=== PATIENT | female | born 1960 | race Two or more races ===

== ENCOUNTER 2025-06-01 19:18 | Inpatient (IN) | payer MEDICARE, OTHER ==
[~2025-06-01] VITALS: Ht 162.6 cm; Wt 96.2 kg
[2025-06-01] MEDS ORDERED: VANCOMYCIN 1 GM in IV D5W 250 ML IV ONE (19:30)
[2025-06-01] MEDS: CEFEPIME 1 GM in IV D5W 50 ML IV ONE (19:41)
[2025-06-01 19:50] LABS: PLATELET COUNT (AUTO) 241 K/uL (150-450); RED BLOOD CELL COUNT(AUTO) 3.09 MIL/uL (4.0-5.2); RED CELL DISTRIBUTION WIDTH 23.5 % (11.5-15.0); WHITE BLOOD COUNT (AUTO) 5.0 K/uL (4.3-11.0)
[2025-06-01 19:56] LABS: APPEARANCE,URINE TURBID (CLEAR); BLOOD, URINE 3+ Ery/uL (NEGATIVE); LEUKOCYTE ESTERASE ,URINE 2+ (NEGATIVE); NITRITE, URINE POSITIVE (NEGATIVE); UGLUCOSE NEGATIVE (NEGATIVE)
[2025-06-01 20:00] LABS: CALCIUM, SERUM 9.0 mg/dL (8.5-10.1); CREATININE 1.1 mg/dL (0.6-1.3); SODIUM SERUM 140.0 mmol/L (136-145); UREA NITROGEN, BLOOD 20.0 mg/dL (7-18)
[2025-06-01 20:01] LABS: ADD URINE CULTURE YES
[2025-06-01 20:04] LABS: INR 1.11 (0.91-1.10)
[2025-06-01 20:05] LABS: ASPARTATE AMINOTRANSFERASE 14.0 U/L (15-37); CALCIUM OXALATE CRYSTALS,UR Few /HPF (None Seen); TOTAL PROTEIN, SERUM 6.6 g/dL (6.4-8.2)
[2025-06-01 20:08] LABS: LACTIC ACID 0.8 mmol/L (0.4-2.0)
[2025-06-01] MEDS: IPRATROPIUM NEB FS 0.5 MG/2.5 ML AMPUL.NEB NEB ONE (20:31)
[2025-06-01] MEDS: ALBUTEROL FS 2.5 MG/3 ML VIAL.NEB CONTNEB ONE (20:31)
[2025-06-01 20:33] LABS: ABG BASE EXCESS 0.4 mmol/L (-2.0-3.0); ABG OXYGEN SATURATION 97.1 % (94.0-98.0); ABG PCO2 88.4 mmHg (32.0-45.0); ABG PH 7.156 (7.350-7.450); ABG PO2 103.4 mmHg (83.0-108.0); ABG TOTAL HEMOGLOBIN 9.8 G/dL (12.0-16.0); FLOW, BLOOD GAS 10.00 L/min (0.00-30.00); SITE, ABG LEFT RADIAL
[2025-06-01] MEDS ORDERED: ALBUTEROL FS 2.5 MG/3 ML VIAL.NEB ONE (20:59)
[2025-06-01] MEDS ORDERED: IPRATROPIUM NEB FS 0.5 MG/2.5 ML AMPUL.NEB ONE (20:59)
[2025-06-01] MEDS ORDERED: INSU100V7 SQ (21:06)
[2025-06-01] MEDS ORDERED: INSU100V39 SQ (21:06)
[2025-06-01] MEDS ORDERED: TAMS-12 PO (21:06)
[2025-06-01] MEDS ORDERED: ATOR20TA PO (21:06)
[2025-06-01] MEDS ORDERED: HYDR-4076 PO (21:06)
[2025-06-01] MEDS ORDERED: LETR2.5T PO (21:06)
[2025-06-01] MEDS ORDERED: VANC250C12 IV (21:06)
[2025-06-01] MEDS ORDERED: ASCO500C18 PO (21:06)
[2025-06-01] MEDS ORDERED: ERGO500093 PO (21:06)
[2025-06-01] MEDS ORDERED: APIX5TAB4 PO (21:06)
[2025-06-01] MEDS ORDERED: MULT-594 PO (21:06)
[2025-06-01] MEDS ORDERED: OMEP20CA15 PO (21:06)
[2025-06-01] MEDS ORDERED: SENN8.6T19 PO (21:06)
[2025-06-01] MEDS ORDERED: GABA600T12 PO (21:06)
[2025-06-01] MEDS ORDERED: MIRT7.5T10 PO (21:06)
[2025-06-01] MEDS ORDERED: OXYC15TA82 PO (21:06)
[2025-06-01] MEDS ORDERED: NOREPINEPHRINE 8 MG in IV NS 0.9% 250 ML IV PRN (22:00)
[2025-06-01] MEDS ORDERED: ACETAMINOPHEN 650 MG/SUPP.RECT RC PRN (22:00)
[2025-06-01] MEDS ORDERED: ONDANSETRON HCL/PF 4 MG/2 ML VIAL IVP PRN (22:00)
[2025-06-01] MEDS ORDERED: DEXTROSE 50%-WATER 50 ML DISP.SYRIN IV PRN (22:00)
[2025-06-01] MEDS ORDERED: DOSING PER PHARMACY-VANCOMYCIN IV XX PRN (22:00)
[2025-06-01] MEDS ORDERED: ENOXAPARIN SODIUM 40 MG/0.4 ML DISP.SYRIN SQ ONE (22:18)
[2025-06-01] MEDS: ENOXAPARIN SODIUM 40 MG/0.4 ML DISP.SYRIN SQ SCH (22:24)
[2025-06-01] MEDS: FUROSEMIDE 40 MG/4 ML VIAL IV ONE (23:00)
[2025-06-01 23:23] LABS: ABG BASE EXCESS -0.6 mmol/L (-2.0-3.0); ABG OXYGEN SATURATION 94.0 % (94.0-98.0); ABG PCO2 61.3 mmHg (32.0-45.0); ABG PH 7.262 (7.350-7.450); ABG PO2 73.4 mmHg (83.0-108.0); ABG TOTAL HEMOGLOBIN 9.6 G/dL (12.0-16.0); SET RATE, BG 24.0; SITE, ABG LEFT RADIAL
[2025-06-02] VITALS (31 sets, daily range): BP systolic 98–180; BP diastolic 54–101; TEMP 97.6–98.8; O2SAT 92–100
[2025-06-02] MEDS: BLOOD SUGAR DIAGNOSTIC 1 EACH STRIP IN SCH ×3 (00:03→23:02)
[2025-06-02] MEDS ORDERED: INSULIN REGULAR, HUMAN 100 UNIT/ML 10 ML VIAL ONE (00:06)
[2025-06-02] MEDS ORDERED: FUROSEMIDE 40 MG/4 ML VIAL ONE (00:06)
[2025-06-02] MEDS: INSULIN REGULAR, HUMAN 100 UNIT/ML 3 ML VIAL SQ PRN (00:16)
[2025-06-02] MEDS ORDERED: CEFEPIME 1 GM VIAL ONE (04:49)
[2025-06-02] MEDS ORDERED: CEFEPIME 2 GM in IV D5W 100 ML IV SCH (05:00)
[2025-06-02] MEDS: CEFEPIME 2 GM in IV D5W 100 ML IV SCH ×2 (05:08→16:31)
[2025-06-02 06:14] LABS: ABG BASE EXCESS 1.9 mmol/L (-2.0-3.0); ABG OXYGEN SATURATION 94.8 % (94.0-98.0); ABG PCO2 43.7 mmHg (32.0-45.0); ABG PH 7.407 (7.350-7.450); ABG PO2 71.0 mmHg (83.0-108.0); ABG TOTAL HEMOGLOBIN 9.8 G/dL (12.0-16.0); SET RATE, BG 24.0; SITE, ABG LEFT RADIAL
[2025-06-02 07:29] LABS: ASPARTATE AMINOTRANSFERASE 14.0 U/L (15-37); CALCIUM, SERUM 9.2 mg/dL (8.5-10.1); CREATININE 1.2 mg/dL (0.6-1.3); PHOSPHORUS 3.4 mg/dL (2.5-4.9); SODIUM SERUM 141.0 mmol/L (136-145); TOTAL PROTEIN, SERUM 6.4 g/dL (6.4-8.2); UREA NITROGEN, BLOOD 22.0 mg/dL (7-18)
[2025-06-02] MEDS ORDERED: Z GUARD REMEDY 4 OZ OINT TP PRN (08:30)
[2025-06-02] MEDS: THERAHONEY GEL 1.5 OZ TUBE TP SCH (09:00)
[2025-06-02] MEDS ORDERED: FUROSEMIDE 40 MG/4 ML VIAL IV SCH (09:00)
[2025-06-02] MEDS: Z GUARD REMEDY 4 OZ OINT TP SCH (09:00)
[2025-06-02] MEDS: ENOXAPARIN SODIUM 100 MG/ML DISP.SYRIN SQ SCH (09:00)
[2025-06-02] MEDS ORDERED: NOREPINEPHRINE 8 MG in IV NS 0.9% 250 ML IV PRN (09:00)
[2025-06-02] MEDS: PANTOPRAZOLE 40 MG VIAL IV SCH (10:10)
[2025-06-02] MEDS: FUROSEMIDE 40 MG/4 ML VIAL IV SCH (10:10)
[2025-06-02] MEDS: VANCOMYCIN 1 GM in IV D5W 250ml IV ONE (10:10)
[2025-06-02 10:19] LABS: ABG BASE EXCESS 1.5 mmol/L (-2.0-3.0); ABG OXYGEN SATURATION 92.0 % (94.0-98.0); ABG PCO2 44.4 mmHg (32.0-45.0); ABG PH 7.396 (7.350-7.450); ABG PO2 64.0 mmHg (83.0-108.0); ABG TOTAL HEMOGLOBIN 9.8 G/dL (12.0-16.0); FLOW, BLOOD GAS 4.00 L/min (0.00-30.00); FRACTIONATED INSPIRED OXYGEN 37.0 %; SITE, ABG LEFT RADIAL
[2025-06-02] MEDS: VANCOMYCIN HCL 1.25 GM in IV D5W 250 ML IV ONE (11:39)
[2025-06-02] MEDS ORDERED: NALOXONE HCL 0.4 MG/ML AMPUL IV PRN (15:30)
[2025-06-02] MEDS: GABAPENTIN 300 MG CAPSULE PO SCH (16:32)
[2025-06-02] MEDS: oxyCODONE HCL SR 10MG TAB.SR.12H PO SCH (21:38)
[2025-06-02] MEDS ORDERED: DEXTROSE 50%-WATER 50 ML DISP.SYRIN IV PRN (22:30)
[2025-06-03] VITALS (16 sets, daily range): BP systolic 105–125; BP diastolic 56–77; TEMP 97.9–98.3; O2SAT 97–99
[2025-06-03 04:53] LABS: ASPARTATE AMINOTRANSFERASE 14.0 U/L (15-37); CALCIUM, SERUM 8.7 mg/dL (8.5-10.1); CREATININE 1.5 mg/dL (0.6-1.3); SODIUM SERUM 140.0 mmol/L (136-145); TOTAL PROTEIN, SERUM 6.2 g/dL (6.4-8.2); UREA NITROGEN, BLOOD 26.0 mg/dL (7-18)
[2025-06-03] MEDS: INSULIN REGULAR, HUMAN 100 UNIT/ML 3 ML VIAL SQ PRN (08:56)
[2025-06-03] MEDS ORDERED: VANCOMYCIN 1 GM in IV D5W 250ml IV SCH (10:00)
[2025-06-03] MEDS ORDERED: VANCOMYCIN 500 MG in IV D5W 100ml IV SCH (11:00)
[2025-06-04] VITALS: BP 95/47; TEMP 97.9; O2SAT 97
[2025-06-04 04:00] VITALS: BP 106/54; TEMP 98.2; O2SAT 92
[2025-06-04 06:33] LABS: PLATELET COUNT (AUTO) 232 K/uL (150-450); RED BLOOD CELL COUNT(AUTO) 3.08 MIL/uL (4.0-5.2); RED CELL DISTRIBUTION WIDTH 23.1 % (11.5-15.0); WHITE BLOOD COUNT (AUTO) 4.4 K/uL (4.3-11.0)
[2025-06-04 06:45] LABS: ASPARTATE AMINOTRANSFERASE 17.0 U/L (15-37); CALCIUM, SERUM 8.4 mg/dL (8.5-10.1); CREATININE 1.4 mg/dL (0.6-1.3); PHOSPHORUS 3.3 mg/dL (2.5-4.9); SODIUM SERUM 140.0 mmol/L (136-145); TOTAL PROTEIN, SERUM 6.1 g/dL (6.4-8.2); UREA NITROGEN, BLOOD 27.0 mg/dL (7-18)
[2025-06-04 07:35] LABS: CREATINE KINASE, TOTAL 32.0 U/L (26-192)
[2025-06-04 08:00] VITALS: BP 117/57; TEMP 97.9; O2SAT 99
[2025-06-04] MEDS ORDERED: VANCOMYCIN HCL 1.25 GM in IV D5W 250 ML IV SCH (08:00)
[2025-06-04] MEDS: PANTOPRAZOLE 40 MG TABLET.DR PO SCH (09:54)
[2025-06-04 16:00] VITALS: BP 113/57; TEMP 98.2; O2SAT 100
[2025-06-04 21:31] VITALS: BP 95/57; TEMP 97.9; O2SAT 100
[2025-06-05] VITALS: BP 92/47; TEMP 97.3; O2SAT 99
[2025-06-05 04:51] VITALS: BP 111/79; TEMP 97.6; O2SAT 100
[2025-06-05 07:07] LABS: CALCIUM, SERUM 8.3 mg/dL (8.5-10.1); CREATININE 1.4 mg/dL (0.6-1.3); SODIUM SERUM 142.0 mmol/L (136-145); UREA NITROGEN, BLOOD 27.0 mg/dL (7-18)
[2025-06-05 07:08] LABS: ASPARTATE AMINOTRANSFERASE 13.0 U/L (15-37); TOTAL PROTEIN, SERUM 6.0 g/dL (6.4-8.2)
[2025-06-05 08:00] VITALS: BP 114/61; TEMP 98.1; O2SAT 99
[2025-06-05] MEDS: VANCOMYCIN HCL 1.25 GM in IV D5W 250 ML IV SCH (09:25)
[2025-06-05] MEDS ORDERED: VANCOMYCIN HCL 1.25 GM in IV D5W 250 ML IV SCH (13:00)
[2025-06-05] MEDS ORDERED: MEROPENEM 500 MG in IV NS 0.9% 50 ML IV SCH (13:00)
[2025-06-05] MEDS: MEROPENEM 1 G in IV NS 0.9% 100 ML IV SCH (14:07)
[2025-06-05 16:00] VITALS: BP 176/96; TEMP 98.1; O2SAT 100
[2025-06-05 20:00] VITALS: BP 107/53; TEMP 98.8; O2SAT 99
[2025-06-06] VITALS (7 sets, daily range): BP systolic 94–105; BP diastolic 41–63; TEMP 98.1–99.3; O2SAT 96–100
[2025-06-06 01:07] LABS: PTH, INTACT 97 pg/mL (15-65)
[2025-06-06 07:19] LABS: ASPARTATE AMINOTRANSFERASE 16.0 U/L (15-37); CALCIUM, SERUM 8.3 mg/dL (8.5-10.1); CREATININE 1.6 mg/dL (0.6-1.3); SODIUM SERUM 140.0 mmol/L (136-145); TOTAL PROTEIN, SERUM 5.9 g/dL (6.4-8.2); UREA NITROGEN, BLOOD 29.0 mg/dL (7-18)
[2025-06-06 10:15] LABS: ABG BASE EXCESS 7.6 mmol/L (-2.0-3.0); ABG OXYGEN SATURATION 98.5 % (94.0-98.0); ABG PCO2 55.7 mmHg (32.0-45.0); ABG PH 7.399 (7.350-7.450); ABG PO2 124.3 mmHg (83.0-108.0); ABG TOTAL HEMOGLOBIN 9.8 G/dL (12.0-16.0); FLOW, BLOOD GAS 4.00 L/min (0.00-30.00); FRACTIONATED INSPIRED OXYGEN 36.0 %; SITE, ABG LEFT RADIAL
[2025-06-06] MEDS ORDERED: NALOXONE HCL 0.4 MG/ML AMPUL IV PRN (16:00)
[2025-06-06] MEDS: oxyCODONE HCL SR 10MG TAB.SR.12H PO SCH (21:56)
[2025-06-07] VITALS: BP 99/57; TEMP 98.6; O2SAT 97
[2025-06-07 04:00] VITALS: BP 104/59; TEMP 99; O2SAT 96
[2025-06-07 08:00] VITALS: BP 99/51; TEMP 97.9; O2SAT 98
[2025-06-07] MEDS ORDERED: MERO1VIA23 IV (09:26)
[2025-06-07 11:08] LABS: PLATELET COUNT (AUTO) 196 K/uL (150-450); RED BLOOD CELL COUNT(AUTO) 3.02 MIL/uL (4.0-5.2); RED CELL DISTRIBUTION WIDTH 23.4 % (11.5-15.0); WHITE BLOOD COUNT (AUTO) 4.3 K/uL (4.3-11.0)
[2025-06-07 11:18] LABS: CALCIUM, SERUM 8.2 mg/dL (8.5-10.1); CREATININE 1.7 mg/dL (0.6-1.3); SODIUM SERUM 142.0 mmol/L (136-145); UREA NITROGEN, BLOOD 31.0 mg/dL (7-18)
[2025-06-07 11:30] VITALS: BP 108/60; TEMP 97.5; O2SAT 99
[2025-06-07 16:07] LABS: *SPE A/G RATIO 1.1 (0.7-1.7); *SPE ALBUMIN 2.9 g/dL (2.9-4.4); *SPE ALPHA-1-GLOBULIN 0.3 g/dL (0.0-0.4); *SPE ALPHA-2-GLOBULIN 0.7 g/dL (0.4-1.0); *SPE BETA GLOBULIN 1.0 g/dL (0.7-1.3); *SPE GLOBULIN, TOTAL 2.6 g/dL (2.2-3.9); *SPE M-SPIKE Not Observed g/dL (Not Observed); *SPE PROTEIN TOTAL 5.5 g/dL (6.0-8.5); *SPEGAMMA GLOBULIN 0.7 g/dL (0.4-1.8)
== END 2025-06-07 16:29 | DRG 189 ==
LOC: ER 19:22 → ICU 06-02 05:55 → TELE 06-03 13:00 → MED 06-07 15:41
PROVIDERS: ADMIT Registered Nurse Psychiatric/Mental Health; ATTEND Internal Medicine
PROC: 5A09357 Assistance with Respiratory Ventilation, Less than 24 Consecutive Hours, Continuous Positive Airway Pressure (ICD-10-PCS; principal; 2025-06-02)
DX: J96.01 Acute respiratory failure with hypoxia (principal); J15.69 Pneumonia due to other Gram-negative bacteria; J15.9 Unspecified bacterial pneumonia; N39.0 Urinary tract infection, site not specified; J90 Pleural effusion, not elsewhere classified; Z16.12 Extended spectrum beta lactamase (ESBL) resistance; N17.9 Acute kidney failure, unspecified; C79.51 Secondary malignant neoplasm of bone; J96.02 Acute respiratory failure with hypercapnia; D64.9 Anemia, unspecified; E78.5 Hyperlipidemia, unspecified; E11.65 Type 2 diabetes mellitus with hyperglycemia; B96.20 Unspecified Escherichia coli [E. coli] as the cause of diseases classified elsewhere; L89.156 Pressure-induced deep tissue damage of sacral region; Z79.4 Long term (current) use of insulin; Z79.811 Long term (current) use of aromatase inhibitors; Z86.711 Personal history of pulmonary embolism; Z86.718 Personal history of other venous thrombosis and embolism; Z90.11 Acquired absence of right breast and nipple; Z85.3 Personal history of malignant neoplasm of breast; Z79.01 Long term (current) use of anticoagulants; K21.9 Gastro-esophageal reflux disease without esophagitis; I48.91 Unspecified atrial fibrillation; M89.8X9 Other specified disorders of bone, unspecified site; I50.9 Heart failure, unspecified; I11.0 Hypertensive heart disease with heart failure; G47.33 Obstructive sleep apnea (adult) (pediatric); E66.01 Morbid (severe) obesity due to excess calories; Z68.36 Body mass index [BMI] 36.0-36.9, adult; E11.42 Type 2 diabetes mellitus with diabetic polyneuropathy; Z98.1 Arthrodesis status; Z95.828 Presence of other vascular implants and grafts
CPT/HCPCS: 36415; 36600; 71045-TC; 71250-TC; 76770-TC; 80048-TC; 80053-TC; 80076-TC; 80202-TC; 81001; 82550-TC; 82803-TC; 82962-TC; 83605-TC; 83735-TC; 83970; 84100-TC; 84155; 84165; 85025-TC; 85730-TC; 87040-TC; 87081-TC; 87086-TC; 87186-TC; 92521; 92526; 93307-TC; 97110-TC; 97112-TC; 97530-TC; 97535-TC; A4223; A6253; A6254; A6403; G0378; J0692; J1650; J1815; J1938; J2185; J2470; J2919; J3373; J7030; J7050; J7060